=== PATIENT | male | born 1970 | race Caucasian/White ===

== ENCOUNTER 2020-02-23 06:54 | Outpatient (NON) | payer OTHER, SELFPAY ==
[2020-02-23 18:01] LABS: SARS-CoV-2 RNA PCR Negative
== END 2020-02-23 06:55 ==
LOC: ANHCOVIDDT 07:09
PROVIDERS: PCP Family Medicine; Visit Provider Physician Assistant Medical
DX: Z20.828 Contact with and (suspected) exposure to other viral communicable diseases (principal); R06.02 Shortness of breath; R05 Cough; J02.9 Acute pharyngitis, unspecified; R52 Pain, unspecified
CPT/HCPCS: 87635; C9803; U0003

== ENCOUNTER → 2020-07-17 12:38 | Outpatient (CLI) | payer OTHER, SELFPAY ==
--- NOTE | ~2020-07-17 | MR_ITS ---
EXAMINATION: MR lumbar spine wo con DATE: 07/17/2020 13:00 INDICATION: Lumbar radiculopathy. Right leg pain. TECHNIQUE: Magnetic resonance imaging (MRI) of the lumbar spine was performed without intravenous con trast. Sequences included sagittal T2-weighted FSE, sagittal T2-weighted FS FSE, sagittal T1-weighted FSE, and axial T2-weighted FSE. COMPARISON: None FINDINGS: There is 6 degrees dextrocurvature of lumbar spine. Vertebral body heights are normal. Ther e is mildly decreased disc height at L3-L4 and severely decreased disc height at L4-L5 with endplate remodeling. The distal spinal cord signal intensity is normal. The conus medullaris is at L1. The fol lowing disc levels are specifically discussed: L1-L2: The disc does not extend beyond the endplate margin. There is no facet joint osteoarthritis. T here is no neural foraminal stenosis. There is no central canal stenosis. L2-L3: There is a left central extrusion that abuts the left L3 nerve root in left lateral recess. Th ere is no facet joint osteoarthritis. There is no neural foraminal stenosis. There is mild central ca nal stenosis. L3-L4: The disc is bulging with superimposed right foraminal zone extrusion. There is mild bilateral facet joint osteoarthritis. There is severe right and mild left neural foraminal stenosis. There is m ild central canal stenosis. L4-L5: The disc is bulging and has an annular fissure. There is mild bilateral facet joint osteoarthr itis. There is mild bilateral neural foraminal stenosis. There is mild central canal stenosis. L5-S1: The disc does not extend beyond the endplate margin. There is mild bilateral facet joint osteo arthritis. There is mild left neural foraminal stenosis. There is no central canal stenosis. IMPRESSION: 1. Severe lumbar spondylosis. Of note, an extrusion causes severe neural foraminal stenosis on the ri ght at L3-L4. Reviewed, dictated and finalized at location B. IMPRESSION: 1. Severe lumbar spondylosis. Of note, an extrusion causes severe neural forami nal stenosis on the right at L3-L4.
== END ==
PROVIDERS: PCP Family Medicine; Visit Provider Family Medicine
DX: M47.27 Other spondylosis with radiculopathy, lumbosacral region (principal); M48.07 Spinal stenosis, lumbosacral region
CPT/HCPCS: 72148